=== PATIENT | female | born 2005 | race Caucasian/White ===

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

== ENCOUNTER 2024-04-07 13:23 | Emergency (ER) | payer OTHER ==
[2024-04-07 13:40] VITALS: RESP 18
[2024-04-07] MEDS: dexAMETHasone 4 MG TAB PO STA (14:14)
[2024-04-07] MEDS: IBUPROFEN 400 MG TAB PO STA (14:14)
--- NOTE | 2024-04-07 14:24 | XR ---
EXAMINATION TYPE: XR chest 2V DATE OF EXAM: 04/07/2024 2:08 PM CLINICAL INDICATION: Female, 18 years old with history of cough; [facility] COMPARISON: Chest radiographs from 12/06/2014 TECHNIQUE: XR chest 2V Frontal view of the chest. FINDINGS: Lungs/Pleura: There is no evidence of pleural effusion, focal consolidation, or pneumothorax. Pulmonary vascularity: Unremarkable. Heart/mediastinum: Cardiomediastinal silhouette is unremarkable. Musculoskeletal: No acute osseous pathology. Other findings: None IMPRESSION: No acute cardiopulmonary disease/process. [facility], Workstation [id number], 04/07/2024 2:21 PM
--- NOTE | 2024-04-07 14:35 | ED ---
General Adult HPI - General Chief complaint: Upper Respiratory Infection Stated complaint: COVID Time Seen by Provider: 04/07/24 13:45 Source: patient, RN notes reviewed, old records reviewed Mode of arrival: ambulatory Limitations: no limitations - History of Present Illness Initial comments: Patient is a 18-year-old female who presents emergency department complaining of cough, congestion. Has been ongoing for 3 days. No fevers. Took a home COVID test which was positive. Has a history of bilateral pneumonia and presents over concern for this as she is having productive cough of greenish sputum. Denies any chest pain, abdominal pain, nausea, vomiting, diarrhea. Denies any fevers. Presents for further evaluation at this time. - Related Data Home Medications Medication Instructions Recorded Confirmed FLUoxetine HCL [PROzac] 20 mg PO DAILY 08/18/18 09/23/18 Loratadine [Claritin] 10 mg PO DAILY 08/18/18 09/23/18 cloNIDine HCL [Catapres] 0.1 mg PO HS 08/18/18 09/23/18 Previous Rx's Medication Instructions Recorded Albuterol Inhaler [Ventolin Hfa 2 puff INHALATION TID PRN #8 gm 04/07/24 Inhaler] Nirmatrelvir/Ritonavir [Paxlovid 1 each PO DIRECTED #1 each 04/07/24 300-100 mg Dose Pack] Allergies Allergy/AdvReac Type Severity Reaction Status Date / Time No Known Allergies Allergy Verified 09/23/18 17:12 Review of Systems ROS Statement: Those systems with pertinent positive or pertinent negative responses have been documented in the HPI. Review of Systems: CONST: Denies fever EYES: Denies blurry vision ENT: Endorses nasal congestion C/V: Denies Chest pain RESP: Denies shortness of breath GI: Denies abdominal pain : Denies dysuria SKIN: Denies rash. MSK: Denies joint pain. NEURO: Denies headache ROS Other: All systems not noted in ROS Statement are negative. Past Medical History Past Medical History: GERD/Reflux, Liver Disease Additional Past Medical History / Comment(s): blind and deaf left side only History of Any Multi-Drug Resistant Organisms: None Reported Past Surgical History: Ear Surgery Additional Past Surgical History / Comment(s): EAR TUBES Past Psychological History: No Psychological Hx Reported Past Alcohol Use History: None Reported Past Drug Use History: None Reported General Exam - General Exam Comments Initial Comments: General: Appears in no acute distress. HEAD: Normal with no signs of head trauma. EYES: EOMI ENT: Hearing grossly intact, normal oropharynx. RESPIRATORY: Clear breath sounds bilaterally. No wheezes, rales, or rhonchi. No hypoxia. No increased work of breathing. C/V: Regular rate and rhythm. S1 and S2 auscultated, peripheral pulses 2+ and intact throughout ABD: Abd is soft, nontender, nondistended EXT: No obvious deformity SKIN: No rashes or lesions observed on exposed skin. NEURO: Alert and oriented x 4. Limitations: no limitations Course Vital Signs 04/07/24 04/07/24 13:33 13:39 Temperature 99.3 F Pulse Rate 106 H Respiratory 20 18 Rate Blood Pressure 161/93 O2 Sat by Pulse 99 Oximetry Medical Decision Making - Medical Decision Making Was pt. sent in by a medical professional or institution (, PA, [employer]ER, urgent care, hospital, or group home...) When possible be specific @ -No Did you speak to anyone other than the patient for history (EMS, parent, family, police, friend...)? What history was obtained from this source @ -No Did you review nursing and triage notes (agree or disagree)? Why? @ -I reviewed and agree with nursing and triage notes Were old charts reviewed (outside hosp., previous admission, EMS record, old EKG, old radiological studies, urgent care reports/EKG's, group home records)? Report findings @ -No old charts were reviewed Differential Diagnosis (chest pain, altered mental status, abdominal pain women, abdominal pain men, vaginal bleeding, weakness, fever, dyspnea, syncope, headache, dizziness, GI bleed, back pain, seizure, CVA, palpatations, mental health, musculoskeletal)? @ -Pneumonia, COVID-19 infection, viral syndrome. This list is not all inclusive. EKG interpreted by me (3pts min.). @ -None done X-rays interpreted by me (1pt min.). @ -Chest x-ray reveals no obvious acute cardiopulmonary process or infiltrate. CT interpreted by me (1pt min.). @ -None done U/S interpreted by me (1pt. min.). @ -None done What testing was considered but not performed or refused? (CT, X-rays, U/S, labs)? Why? @ -None What meds were considered but not given or refused? Why? @ -None Did you discuss the management of the patient with other professionals (professionals i.e. , MANDY, P[employer] SHOVELER, lab, RT, psych nurse, high school social studies teacher, vice president of software development, teacher, commissioned security officer, case packer)? Give summary @ -No Was smoking cessation discussed for >3mins.? @ -No Was critical care preformed (if so, how long)? @ -No Were there social determinants of health that impacted care today? How? (Homelessness, low income, unemployed, alcoholism, drug addiction, transportation, low edu. Level, literacy, decrease access to med. care, half-way, rehab)? @ -No Was there de-escalation of care discussed even if they declined (Discuss DNR or withdrawal of care, Hospice)? DNR status @ -No What co-morbidities impacted this encounter? (DM, HTN, Smoking, COPD, CAD, Cancer, CVA, ARF, Chemo, Hep., AIDS, mental health diagnosis, sleep apnea, morbid obesity)? @ -None Was patient admitted / discharged? Hospital course, mention meds given and route, prescriptions, significant lab abnormalities, going to OR and other pertinent info. @ -Based on the patient's presentation and physical exam, patient presents emergency department for COVID-19 infection but wants to be evaluated for possible pneumonia. She will be given a dose of Motrin as well as Decadron. We will obtain a chest x-ray. Viral swabs are not warranted at this time as home COVID test was positive. She is in no obvious respiratory distress. No fevers. Vitals within acceptable limits. Patient was in agreement this plan. Chest x-ray negative for any signs of acute infiltrate. I discussed results with patient. She will be discharged home with a prescription for Paxil bid as well as albuterol inhaler. Patient was in agreement this plan. Patient given work note. Instructed her to remain isolated and off work for at least 5 days after symptom onset which will be until next Tuesday. She is given a work note. Patient needs to be fever free for 24 hours prior to return to work. She expressed understanding was in agreement the plan. I will provide the patient with a prescription for Paxlovid, albuterol inhaler. I instructed the patient to follow up with their PCP in the next 1-3 days.. I explained that the patient should return to the emergency department if they exp erience any worsening symptoms. Strict return precautions were discussed with the patient. The patient expressed understanding of these instructions. I answered all questions that the patient had. The patient was discharged home in good condition with their prescriptions and follow up information. Undiagnosed new problem with uncertain prognosis? @ -No Drug Therapy requiring intensive monitoring for toxicity (Heparin, Nitro, Insulin, Cardizem)? @ -No Were any procedures done? @ -No Diagnosis/symptom? @ -COVID-19 infection Acute, or Chronic, or Acute on Chronic? @ -Acute Uncomplicated (without systemic symptoms) or Complicated (systemic symptoms)? @ -Complicated Side effects of treatment? @ -No Exacerbation, Progression, or Severe Exacerbation? @ -No Poses a threat to life or bodily function? How? (Chest pain, [place], [place], pneumonia, PE, COPD, DKA, ARF, appy, cholecystitis, CVA, Diverticulitis, Homicidal, Suicidal, threat to staff... and all critical care pts) @ -Unlikely Disposition Clinical Impression: COVID-19 virus infection Disposition: HOME SELF-CARE Condition: Good Instructions (If sedation given, give patient instructions): Coronavirus Disease 2019 (COVID-19) Prescriptions: Nirmatrelvir/Ritonavir [Paxlovid 300-100 mg Dose Pack] 1 each PO DIRECTED #1 each Albuterol Inhaler [Ventolin Hfa Inhaler] 2 puff INHALATION TID PRN #8 gm PRN Reason: Dyspnea Is patient prescribed a controlled substance at d/c from ED?: No Referrals: Yusef Cruz DO [Primary Care Provider] - 1-2 days Time of Disposition: 14:35
[2024-04-07 14:55] VITALS: BP 156/90; PULSE 96; TEMP 98
== END 2024-04-07 14:54 | disposition home or self-care (01) ==
LOC: EC 13:23
DX: U07.1 COVID-19 (principal)
CPT/HCPCS: 71046; 99283

== ENCOUNTER 2024-05-16 00:50 | Emergency (ER) | payer OTHER ==
[2024-05-16] MEDS: IPRATROPIUM-ALBUTEROL 3 ML NEB INHALATION STA (01:23)
[2024-05-16] MEDS: ACETAMINOPHEN TAB 500 MG TAB PO STA (01:36)
[2024-05-16] MEDS: SODIUM CHLORIDE 0.9% 1,000 ML IV STA (01:38)
[2024-05-16 01:59] LABS: ALT 44 U/L (4-34); AST 27 U/L (14-36); African American GFR (CKD) >90 (>60 ml/min/1.73 sqM); Albumin 4.1 g/dL (3.5-5.0); Alkaline Phosphatase 54 U/L (38-126); Anion Gap 8 mmol/L; Blood Urea Nitrogen 11 mg/dL (7-17); Calcium 9.2 mg/dL (8.4-10.2); Carbon Dioxide 21 mmol/L (22-30); Chloride 105 mmol/L (98-107); Glucose 84 mg/dL (74-99); Magnesium 1.8 mg/dL (1.6-2.3); Non-African American GFR(CKD) >90 (>60 ml/min/1.73 sqM); Potassium 4.1 mmol/L (3.5-5.1); Sodium 134 mmol/L (137-145); Total Bilirubin 0.4 mg/dL (0.2-1.3); Total Protein 6.7 g/dL (6.3-8.2)
[2024-05-16 02:02] LABS: Basophils # (A) 0.1 k/uL (0-0.2); Basophils % (A) 0 %; Eosinophils # (A) 0.1 k/uL (0-0.7); Eosinophils % (A) 1 %; HCT 42.3 % (34.0-46.0); HGB 14.2 gm/dL (11.4-16.0); Lymphocytes # (A) 2.4 k/uL (1.0-4.8); Lymphocytes % (A) 18 %; MCH 31.1 pg (25.0-35.0); MCHC 33.6 g/dL (31.0-37.0); MCV 92.5 fL (80.0-100.0); Mean Platelet Volume 8.5; Monocytes % (A) 7 %; Neutrophils # (A) 9.5 k/uL (1.3-7.7); Neutrophils % (A) 72 %; Platelet Count 306 k/uL (150-450); RBC 4.57 m/uL (3.80-5.40); RDW 12.5 % (11.5-15.5); WBC 13.3 k/uL (4.0-11.0)
--- NOTE | 2024-05-16 02:07 | ED ---
General Adult HPI - General Source: patient, RN notes reviewed, old records reviewed Mode of arrival: ambulatory <Galindo Mckeon - Last Filed: 05/16/24 06:22> <Ramu Powell - Last Filed: 05/16/24 07:57> - General Chief complaint: Upper Respiratory Infection Stated complaint: SOB- 6 wks preg Time Seen by Provider: 05/16/24 01:02 - History of Present Illness Initial comments: Is a 18-year-old female presents emergency department complaining of URI symptoms. Patient is also complaining of chest heaviness. Had COVID 2 weeks ago. States that she was feeling improved however today began developing a dry cough with a chest pressure/discomfort that is substernal. 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 Denies sore throat. Denies fevers. Denies nausea, vomiting, abdominal pain. No cardiac history. Presents for further evaluation at this time. States she feels congested, with ear plugging sensation as well. Patient is 6 weeks . Denies any vaginal discharge or bleeding. (Galindo Mckeon) - Related Data Home Medications Medication Instructions Recorded Confirmed FLUoxetine HCL [PROzac] 20 mg PO DAILY 08/18/18 09/23/18 Loratadine [Claritin] 10 mg PO DAILY 08/18/18 09/23/18 cloNIDine HCL [Catapres] 0.1 mg PO HS 08/18/18 09/23/18 Previous Rx's Medication Instructions Recorded Albuterol Inhaler [Ventolin Hfa 2 puff INHALATION TID PRN #8 gm 04/07/24 Inhaler] Nirmatrelvir/Ritonavir [Paxlovid 1 each PO DIRECTED #1 each 04/07/24 300-100 mg Dose Pack] Amoxic-Pot Clav 875-125Mg 1 tab PO Q12HR 7 Days #14 tab 05/16/24 [Augmentin 875-125] Allergies Allergy/AdvReac Type Severity Reaction Status Date / Time No Known Allergies Allergy Verified 05/16/24 00:58 Review of Systems ROS Other: All systems not noted in ROS Statement are negative. <Galindo Mckeon - Last Filed: 05/16/24 06:22> ROS Other: All systems not noted in ROS Statement are negative. <Ramu Powell - Last Filed: 05/16/24 07:57> ROS Statement: Those systems with pertinent positive or pertinent negative responses have been documented in the HPI. Review of Systems: CONST: Denies fever EYES: Denies blurry vision ENT: Endorses nasal congestion C/V: Endorses chest discomfort RESP: Endorses cough GI: Denies abdominal pain : Denies dysuria SKIN: Denies rash. MSK: Denies joint pain. 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 HEAD: Normal with no signs of head trauma. EYES: PERRLA, EOMI, conjunctiva normal, no discharge. ENT: Hearing grossly intact, normal oropharynx. RESPIRATORY: Clear breath sounds bilaterally. No wheezes, rales, or rhonchi. C/V: Regular rate and rhythm. S1 and S2 auscultated, no edema, peripheral pulses 2+ and intact throughout ABD: Abd is soft, nontender, nondistended EXT: Normal range of motion, no obvious deformity SKIN: No rashes or lesions observed on exposed skin. NEURO: And oriented x 4. (Galindo Mckeon) Course Vital Signs 05/16/24 05/16/24 05/16/24 00:52 01:25 01:33 Temperature 98.7 F Pulse Rate 115 H 75 78 Respiratory 20 Rate Blood Pressure 137/84 O2 Sat by Pulse 99 Oximetry 05/16/24 05/16/24 05/16/24 03:27 06:11 07:36 Temperature 98.3 F 98.5 F 98.1 F Pulse Rate 99 95 92 Respiratory 18 18 16 Rate Blood Pressure 146/96 139/74 129/85 O2 Sat by Pulse 98 98 97 Oximetry Medical Decision Making - Lab Data Result diagrams: 05/16/24 01:35 05/16/24 01:35 - EKG Data -: EKG Interpreted by Me <MikeGalindo - Last Filed: 05/16/24 06:22> - Lab Data Result diagrams: 05/16/24 01:35 05/16/24 01:35 <NahumcathyRamu Nayely - Last Filed: 05/16/24 07:57> - Medical Decision Making Was pt. sent in by a medical professional or institution (, [facility], [employer], urgent care, hospital, or shelter...) When possible be specific @ -No Did you speak to anyone other than the patient for history (EMS, parent, family, police, friend...)? What history was obtained from this source @ -No Did you review nursing and triage notes (agree or disagree)? Why? @ -I reviewed and agree with nursing and triage notes Were old charts reviewed (outside hosp., previous admission, EMS record, old EKG, old radiological studies, urgent care reports/EKG's, shelter records)? Report findings @ -No old charts were reviewed Differential Diagnosis (chest pain, altered mental status, abdominal pain women, abdominal pain men, vaginal bleeding, weakness, fever, dyspnea, syncope, headache, dizziness, GI bleed, back pain, seizure, CVA, palpatations, mental health, musculoskeletal)? @ -ACS, COVID, flu, RSV, pneumonia, this list is not all inclusive. EKG interpreted by me (3pts min.). @ -As above X-rays interpreted by me (1pt min.). @ -X-ray shows findings concerning for pneumonia in the left middle lobe based on my interpretation and comparison with prior x-rays. CT interpreted by me (1pt min.). @ -None done U/S interpreted by me (1pt. min.). @ -None done What testing was considered but not performed or refused? (CT, X-rays, U/S, labs)? Why? @ -None What meds were considered but not given or refused? Why? @ -None Did you discuss the management of the patient with other professionals (professionals i.e. , PA, [employer], lab, RT, psych nurse, home health care social worker, rotational moulding operator, teacher, traffic police officer, director of casework)? Give summary @ -No Was smoking cessation discussed for >3mins.? @ -No Was critical care preformed (if so, how long)? @ -No Were there social determinants of health that impacted care today? How? (Homelessness, low income, unemployed, alcoholism, drug addiction, transportation, low edu. Level, literacy, decrease access to med. care, residential, rehab)? @ -No Was there de-escalation of care discussed even if they declined (Discuss DNR or withdrawal of care, Hospice)? DNR status @ -No What co-morbidities impacted this encounter? (DM, HTN, Smoking, COPD, CAD, Cancer, CVA, ARF, Chemo, Hep., AIDS, mental health diagnosis, sleep apnea, morbid obesity)? @ - Was patient admitted / discharged? Hospital course, mention meds given and route, prescriptions, significant lab abnormalities, going to OR and other pertinent info. @ -Patient presents with URI symptoms as well as chest discomfort. We will obtain cardiac workup in addition to evaluation of the URI symptoms. She was in agreement this plan. She was given IV fluids, DuoNeb breathing treatment, Tylenol. Patient is currently but has no complaints regarding this. Discussed the risks of providing chest x-ray and she did accept them. Vitals are within acceptable limits at this time. EKG shows no signs of acute ischemia.Chest x-ray concerning for infiltrate in the left middle lobe. Laboratory studies remarkable for leukocytosis of 13. Troponin undetectable. When patient was going to leave a urine sample, she began having episodes of vaginal spotting. No large tissue or clots appreciated. Patient is 6 weeks , G1, P0. Has not yet had any follow- up. Quantitative beta-hCG was added on at this time. Urinalysis remarkable for blood. Quantitative beta-hCG is 63,000. Attempted bedside ultrasound indeterminant due to bowel gas as well as poor resolution. Discussed with the patient. She is feeling overall improved in terms of her breathing and chest tightness. States the breathing treatment helped. I discussed with her that I suspect she has pneumonia based on chest x-ray. She will be started on antibiotics, IV Rocephin as well as given a prescription for oral Augmentin. I discussed the indeterminant bedside ultrasound findings and recommended formal radiology ultrasound. Patient was in agreement this plan. It is the middle of the night and she was in agreement with waiting until 7 AM for this ultrasound. Patient will be discharged home afterwards.Patient is Rh+ and does not require RhoGAM. I discussed the patient with the oncoming emergency department physician, Dr. Powell. Disposition pending ultrasound. Undiagnosed new problem with uncertain prognosis? @ -No Drug Therapy requiring intensive monitoring for toxicity (Heparin, Nitro, Insulin, Cardizem)? @ -No Were any procedures done? @ -No Diagnosis/symptom? @ -Pneumonia, threatened miscarriage Acute, or Chronic, or Acute on Chronic? @ -Acute Uncomplicated (without systemic symptoms) or Complicated (systemic symptoms)? @ -Complicated Side effects of treatment? @ -None Exacerbation, Progression, or Severe Exacerbation] @ -No Poses a threat to life or bodily function? @ -Unlikely at this time (Galindo Mckeon) Patient care signed out to me by previous shift physician, Dr. Mckeon. Briefly, patient is 18-year-old female presents to the emergency department for respiratory infectious type symptoms. During her ER stay she started to have some vaginal bleeding. Plan at signout was to follow-up with pending ultrasound study. She is allegedly 6-week . Laboratory evaluation obtained. Beta quant is 62,258. Ultrasound shows no complications of the . There is appear to be a single viable intrauterine with viable heart rate. Patient reevaluated bedside at 7:55 AM found to be stable to condition. Patient discharged. (Ramu Powell) - Lab Data Lab Results 05/16/24 05/16/24 05/16/24 Range/Units 01:35 01:35 01:35 WBC 13.3 H (4.0-11.0) k/uL RBC 4.57 (3.80-5.40) m/uL Hgb 14.2 (11.4-16.0) gm/dL Hct 42.3 (34.0-46.0) % MCV 92.5 (80.0-100.0) fL MCH 31.1 (25.0-35.0) pg MCHC 33.6 (31.0-37.0) g/dL RDW 12.5 (11.5-15.5) % Plt Count 306 (150-450) k/uL MPV 8.5 Neutrophils % 72 % Lymphocytes % 18 % Monocytes % 7 % Eosinophils % 1 % Basophils % 0 % Neutrophils # 9.5 H (1.3-7.7) k/uL Lymphocytes # 2.4 (1.0-4.8) k/uL Monocytes # 1.0 (0-1.0) k/uL Eosinophils # 0.1 (0-0.7) k/uL Basophils # 0.1 (0-0.2) k/uL PT 10.0 (10.0-12.5) sec INR 0.9 (<1.2) APTT 30.7 H (22.0-30.0) sec Sodium 134 L (137-145) mmol/L Potassium 4.1 (3.5-5.1) mmol/L Chloride 105 (98-107) mmol/L Carbon Dioxide 21 L (22-30) mmol/L Anion Gap 8 mmol/L BUN 11 (7-17) mg/dL Creatinine 0.56 (0.52-1.04) mg/dL Est GFR (CKD-EPI)AfAm >90 (>60 ml/min/1.73 sqM) Est GFR (CKD-EPI)NonAf >90 (>60 ml/min/1.73 sqM) Glucose 84 (74-99) mg/dL Calcium 9.2 (8.4-10.2) mg/dL Magnesium 1.8 (1.6-2.3) mg/dL Total Bilirubin 0.4 (0.2-1.3) mg/dL AST 27 (14-36) U/L ALT 44 H (4-34) U/L Alkaline Phosphatase 54 (38-126) U/L Troponin I (0.000-0.034) ng/mL Total Protein 6.7 (6.3-8.2) g/dL Albumin 4.1 (3.5-5.0) g/dL HCG, Quant mIU/mL Urine Color Urine Appearance (Clear) Urine pH (5.0-8.0) Ur Specific [place] (1.001-1.035) Urine Protein (Negative) Urine Glucose (UA) (Negative) Urine Ketones (Negative) Urine Blood (Negative) Urine Nitrite (Negative) Urine Bilirubin (Negative) Urine Urobilinogen (<2.0) mg/dL Ur Leukocyte Esterase (Negative) Urine RBC (0-5) /hpf Urine WBC (0-5) /hpf Ur Squamous Epith Cells (0-4) /hpf Amorphous Sediment (None) /hpf Urine Mucus (None) /hpf Influenza Type A (PCR) (Not Detectd) Influenza Type B (PCR) (Not Detectd) RSV (PCR) (Not Detectd) SARS-CoV-2 (PCR) (Not Detectd) Blood Type Blood Type Confirm Blood Type Recheck Bld Type Recheck Status Antibody Screen Spec Expiration Date 05/16/24 05/16/24 05/16/24 Range/Units 01:35 01:35 01:35 WBC (4.0-11.0) k/uL RBC (3.80-5.40) m/uL Hgb (11.4-16.0) gm/dL Hct (34.0-46.0) % MCV (80.0-100.0) fL MCH (25.0-35.0) pg MCHC (31.0-37.0) g/dL RDW (11.5-15.5) % Plt Count (150-450) k/uL MPV Neutrophils % % Lymphocytes % % Monocytes % % Eosinophils % % Basophils % % Neutrophils # (1.3-7.7) k/uL Lymphocytes # (1.0-4.8) k/uL Monocytes # (0-1.0) k/uL Eosinophils # (0-0.7) k/uL Basophils # (0-0.2) k/uL PT (10.0-12.5) sec INR (<1.2) APTT (22.0-30.0) sec Sodium (137-145) mmol/L Potassium (3.5-5.1) mmol/L Chloride (98-107) mmol/L Carbon Dioxide (22-30) mmol/L Anion Gap mmol/L BUN (7-17) mg/dL Creatinine (0.52-1.04) mg/dL Est GFR (CKD-EPI)AfAm (>60 ml/min/1.73 sqM) Est GFR (CKD-EPI)NonAf (>60 ml/min/1.73 sqM) Glucose (74-99) mg/dL Calcium (8.4-10.2) mg/dL Magnesium (1.6-2.3) mg/dL Total Bilirubin (0.2-1.3) mg/dL AST (14-36) U/L ALT (4-34) U/L Alkaline Phosphatase (38-126) U/L Troponin I <0.012 (0.000-0.034) ng/mL Total Protein (6.3-8.2) g/dL Albumin (3.5-5.0) g/dL HCG, Quant 54430.3 mIU/mL Urine Color Urine Appearance (Clear) Urine pH (5.0-8.0) Ur Specific [place] (1.001-1.035) Urine Protein (Negative) Urine Glucose (UA) (Negative) Urine Ketones (Negative) Urine Blood (Negative) Urine Nitrite (Negative) Urine Bilirubin (Negative) Urine Urobilinogen (<2.0) mg/dL Ur Leukocyte Esterase (Negative) Urine RBC (0-5) /hpf Urine WBC (0-5) /hpf Ur Squamous Epith Cells (0-4) /hpf Amorphous Sediment (None) /hpf Urine Mucus (None) /hpf Influenza Type A (PCR) (Not Detectd) Influenza Type B (PCR) (Not Detectd) RSV (PCR) (Not Detectd) SARS-CoV-2 (PCR) (Not Detectd) Blood Type Blood Type Confirm A Positive Blood Type Recheck Bld Type Recheck Status Antibody Screen Spec Expiration Date 05/16/24 05/16/24 05/16/24 Range/Units 01:48 02:41 03:20 WBC (4.0-11.0) k/uL RBC (3.80-5.40) m/uL Hgb (11.4-16.0) gm/dL Hct (34.0-46.0) % MCV (80.0-100.0) fL MCH (25.0-35.0) pg MCHC (31.0-37.0) g/dL RDW (11.5-15.5) % Plt Count (150-450) k/uL MPV Neutrophils % % Lymphocytes % % Monocytes % % Eosinophils % % Basophils % % Neutrophils # (1.3-7.7) k/uL Lymphocytes # (1.0-4.8) k/uL Monocytes # (0-1.0) k/uL Eosinophils # (0-0.7) k/uL Basophils # (0-0.2) k/uL PT (10.0-12.5) sec INR (<1.2) APTT (22.0-30.0) sec Sodium (137-145) mmol/L Potassium (3.5-5.1) mmol/L Chloride (98-107) mmol/L Carbon Dioxide (22-30) mmol/L Anion Gap mmol/L BUN (7-17) mg/dL Creatinine (0.52-1.04) mg/dL Est GFR (CKD-EPI)AfAm (>60 ml/min/1.73 sqM) Est GFR (CKD-EPI)NonAf (>60 ml/min/1.73 sqM) Glucose (74-99) mg/dL Calcium (8.4-10.2) mg/dL Magnesium (1.6-2.3) mg/dL Total Bilirubin (0.2-1.3) mg/dL AST (14-36) U/L ALT (4-34) U/L Alkaline Phosphatase (38-126) U/L Troponin I (0.000-0.034) ng/mL Total Protein (6.3-8.2) g/dL Albumin (3.5-5.0) g/dL HCG, Quant mIU/mL Urine Color Light Yellow Urine Appearance Cloudy H (Clear) Urine pH 7.0 (5.0-8.0) Ur Specific [place] 1.023 (1.001-1.035) Urine Protein Negative (Negative) Urine Glucose (UA) Negative (Negative) Urine Ketones Negative (Negative) Urine Blood Large H (Negative) Urine Nitrite Negative (Negative) Urine Bilirubin Negative (Negative) Urine Urobilinogen <2.0 (<2.0) mg/dL Ur Leukocyte Esterase Negative (Negative) Urine RBC <1 (0-5) /hpf Urine WBC <1 (0-5) /hpf Ur Squamous Epith Cells 5 H (0-4) /hpf Amorphous Sediment Rare H (None) /hpf Urine Mucus Occasional H (None) /hpf Influenza Type A (PCR) Not Detected (Not Detectd) Influenza Type B (PCR) Not Detected (Not Detectd) RSV (PCR) Not Detected (Not Detectd) SARS-CoV-2 (PCR) Not Detected (Not Detectd) Blood Type A Positive Blood Type Confirm Blood Type Recheck No Previous Record Bld Type Recheck Status CABO Indicated Antibody Screen NEGATIVE Spec Expiration Date 05/19/20242319 - EKG Data EKG Comments: 12-lead Electrocardiogram Interpretation Note EKG was reviewed and interpreted by myself. 12-lead ECG performed at 0121 is interpreted by me as revealing tachycardia at a rate of 102 beats per minute. Goltry is normal. ND interval is 151 ms, QRS duration is 85 ms, QTc is 387 ms.. There were no ST or T wave abnormalities to suggest myocardial ischemia or injury. R wave progression across the precordium was satisfactory. By my interpretation this EKG is non-diagnostic for acute ischemia. (Galindo Mckeon) Disposition Is patient prescribed a controlled substance at d/c from ED?: No <Galindo Mckeon - Last Filed: 05/16/24 06:22> Is patient prescribed a controlled substance at d/c from ED?: No <Ramu Powell - Last Filed: 05/16/24 07:57> Clinical Impression: Threatened miscarriage, Pneumonia Disposition: HOME SELF-CARE Condition: Good Instructions (If sedation given, give patient instructions): Threatened Miscarriage (ED), Community Acquired Pneumonia (ED) Additional Instructions: Follow up with your OBGYN. Monitor bleeding, return if worsening symptoms. Prescriptions: Amoxic-Pot Clav 875-125Mg [Augmentin 875-125] 1 tab PO Q12HR 7 Days #14 tab Referrals: Yusef Cruz DO [Primary Care Provider] - 1-2 days
[2024-05-16 02:28] LABS: INR 0.9 (<1.2); Partial Thromboplastin Time 30.7 sec (22.0-30.0)
[2024-05-16 03:15] LABS: Amorphous Sediment,Urine Rare /hpf; Appearance,Urine Cloudy (Clear); Bilirubin,Urine Negative (Negative); Blood,Urine Large (Negative); Color,Urine Light Yellow; Glucose,Urine (UA) Negative (Negative); Ketones,Urine Negative (Negative); Leukocyte Esterase,Urine Negative (Negative); Mucus,Urine Occasional /hpf; Nitrite,Urine Negative (Negative); Protein,Urine Negative (Negative); RBC,Urine <1 /hpf (0-5); Specific Gravity,Urine 1.023 (1.001-1.035); Squamous Epithelial Cell,Urine 5 /hpf (0-4); Urobilinogen,Urine <2.0 mg/dL (<2.0); WBC,Urine <1 /hpf (0-5)
--- NOTE | 2024-05-16 03:22 | XR ---
EXAM: XR Chest, 2 Views CLINICAL HISTORY: ITS.REASON XR Reason: Chest Pain TECHNIQUE: Frontal and lateral views of the chest. COMPARISON: Chest radiograph on 04/07/2024 FINDINGS: Hardware: None. Lungs/pleura: Normal. No focal consolidation. No pleural effusion or pneumothorax. Heart/mediastinum: Normal. No cardiomegaly. Soft tissues: Unremarkable. Bones: No acute fracture. Upper abdomen: Normal. IMPRESSION: No acute disease identified.
[2024-05-16] MEDS: cefTRIAXone IN SWFI 1,000 MG/10 ML SYRINGE IVP STA (06:13)
[2024-05-16 07:37] VITALS: TEMP 98.1
--- NOTE | 2024-05-16 07:50 | US ---
EXAMINATION TYPE: Transabdominal DATE OF EXAM: 05/16/2024 7:20 AM COMPARISON: NONE CLINICAL INDICATION: Female, 18 years old with history of vaginal bleeding.; spotting TECHNIQUE: Transabdominal (TA) with grayscale and color Doppler imaging including first trimester pre gnancy. FINDINGS: EXAM MEASUREMENTS: GESTATIONAL AGE / DATING Physician Established: Not yet established Dates by LMP: (6 weeks/4 days) EDC: 01/05/25 Dates by First Scan: No previous this is first scan Dates by Current Scan for: (6 weeks/6 days) EDC: 01/03/25 MATERNAL ANATOMY Uterus: 11.0x4.7x6.7cm Right Ovary: 4.0x2.1x3.0cm Left Ovary: 2.9x1.4x1.7cm Post CDS / Adnexa: wnl Presence of free fluid: no Presence of corpus luteal cyst: no Presence of subchorionic bleed: no GESTATION / SURVEY CRL: 0.9 (6 weeks/6 days) Yolk Sac (normal less than 6mm): 1.8mm Heart Rate: 121 bpm Rhythm: Normal IUP: Viable IUP Date of LMP: 03/31/24 Beta HcG (if available): Not available at this time IMPRESSION: 1. Single viable intrauterine . [facility], , 05/16/2024 7:48 AM
[2024-05-16 08:13] VITALS: BP 132/70; PULSE 104; RESP 18
== END 2024-05-16 08:22 | disposition home or self-care (01) ==
LOC: EC 00:50
CPT/HCPCS: 36415; 71046; 76801; 80053; 81001; 83735; 84484; 84702; 85025; 85610; 85730; 86850; 86900; 86901; 87636; 93005; 94640; 96361; 96374; 96375; 99285

== ENCOUNTER 2024-05-19 12:35 | Observation (INO) | payer OTHER ==
--- NOTE | 2024-05-19 13:21 | ED ---
General Adult HPI - General Chief complaint: Upper Respiratory Infection Stated complaint: SOB Time Seen by Provider: 05/19/24 13:00 Source: patient Mode of arrival: ambulatory Limitations: no limitations - History of Present Illness Initial comments: Dictation was produced using [employer] dictation software. please excuse any grammatical, word or spelling errors. Chief Complaint: 18-year-old female with cold symptoms History of Present Illness: Patient is a 18-year-old female presents to the emergency department with cold symptoms. Patient was seen here in the emergency department 3 days ago for the same complaints. She was diagnosed with pneumonia given prescription for Augmentin. States that her symptoms have not been improving. She was diagnosed with COVID over a month ago. States that she has not really recovered. No chest pain. Some slight shortness of breath. She is allegedly 7 weeks . The ROS documented in this emergency department record has been reviewed and confirmed by me. Those systems with pertinent positive or negative responses have been documented in the HPI. All other systems are other negative and/or noncontributory. - Related Data Home Medications Medication Instructions Recorded Confirmed FLUoxetine HCL [PROzac] 20 mg PO DAILY 08/18/18 09/23/18 Loratadine [Claritin] 10 mg PO DAILY 08/18/18 09/23/18 cloNIDine HCL [Catapres] 0.1 mg PO HS 08/18/18 09/23/18 Previous Rx's Medication Instructions Recorded Albuterol Inhaler [Ventolin Hfa 2 puff INHALATION TID PRN #8 gm 04/07/24 Inhaler] Nirmatrelvir/Ritonavir [Paxlovid 1 each PO DIRECTED #1 each 04/07/24 300-100 mg Dose Pack] Amoxic-Pot Clav 875-125Mg 1 tab PO Q12HR 7 Days #14 tab 05/16/24 [Augmentin 875-125] Allergies Allergy/AdvReac Type Severity Reaction Status Date / Time No Known Allergies Allergy Verified 05/19/24 12:59 Review of Systems ROS Statement: Those systems with pertinent positive or pertinent negative responses have been documented in the HPI. ROS Other: All systems not noted in ROS Statement are negative. 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, liver issues, History of Any Multi-Drug Resistant Organisms: None Reported Past Surgical History: Ear Surgery Additional Past Surgical History / Comment(s): EAR TUBES, oral surgery 07/2021 Past Psychological History: Anxiety, Depression Smoking Status: Former smoker Past Alcohol Use History: None Reported Past Drug Use History: None Reported General Exam - General Exam Comments Initial Comments: PHYSICAL EXAM: General Impression: Alert and oriented x3, not in acute distress HEENT: Normocephalic atraumatic, extra-ocular movements intact, pupils equal and reactive to light bilaterally, mucous membranes moist. Cardiovascular: Heart regular rate and rhythm Chest: Able to complete full sentences, no retractions, no tachypnea Abdomen: abdomen soft, non-tender, non-distended, no organomegaly Musculoskeletal: Pulses present and equal in all extremities, no peripheral edema Motor: no focal deficits noted Neurological: CN II-XII grossly intact, no focal motor or sensory deficits noted Skin: Intact with no visualized rashes Psych: Normal affect and mood Limitations: no limitations Course Vital Signs 05/19/24 12:53 Temperature 99.0 F Pulse Rate 87 Respiratory 18 Rate Blood Pressure 121/69 O2 Sat by Pulse 98 Oximetry Medical Decision Making - Medical Decision Making Was pt. sent in by a medical professional or institution (, PA, B[employer]K SAUSAGE [employer]ING TIER [employer], urgent care, hospital, or correction...) When possible be specific @ -No Did you speak to anyone other than the patient for history (EMS, parent, family, police, friend...)? What history was obtained from this source @ -No Did you review nursing and triage notes (agree or disagree)? Why? @ -I reviewed and agree with nursing and triage notes Were old charts reviewed (outside hosp., previous admission, EMS record, old EKG, old radiological studies, urgent care reports/EKG's, correction records)? Report findings @ -No old charts were reviewed Differential Diagnosis (chest pain, altered mental status, abdominal pain women, abdominal pain men, vaginal bleeding, musculoskeletal, weakness, fever, dyspnea, syncope, headache, dizziness, GI bleed, back pain, seizure, CVA, palpatations, mental health)? @ -Pneumonia, viral URI, influenza EKG interpreted by me (3pts min.). @ -None done X-rays interpreted by me (1pt min.). @ -Chest x-ray shows progression of pneumonia CT interpreted by me (1pt min.). @ -None done U/S interpreted by me (1pt. min.). @ -None done What testing was considered but not performed or refused? (CT, X-rays, U/S, labs)? Why? @ -None What meds were considered but not given or refused? Why? @ -None Was smoking cessation discussed for >3mins.? @ -No Were there social determinants of health that impacted care today? How? (Jhon elessness, low income, unemployed, alcoholism, drug addiction, transportation, low edu. Level, literacy, decrease access to med. care, care home, rehab)? @ -No Was there de-escalation of care discussed even if they declined (Discuss DNR or withdrawal of care, Hospice)? DNR status @ -No What co-morbidities impacted this encounter? (DM, HTN, Smoking, COPD, CAD, Cancer, CVA, ARF, Chemo, Hep., AIDS, mental health diagnosis, sleep apnea, morbid obesity)? @ -None Was patient admitted / discharged? Hospital course, mention meds given and route, prescriptions, significant lab abnormalities, going to OR and other pertinent info. @ -18-year-old female presents with persistent URI type symptoms. Vital signs stable. Patient well-appearing at the bedside. X-ray shows progression of pulmonary infiltrates. Laboratory evaluation is unremarkable.Physician options were discussed with patient she is agreeable for observation admission with pulmonary consultation. Patient started on IV antibiotics for commune acquired pneumonia. Did you discuss the management of the patient with other professionals (professionals i.e. , PA, [employer]ER [employer], lab, RT, psych nurse, forensic social worker, commissioner conservation of resources, teacher, svp chief marketing officer, director of casework services)? Give summary @ -Case discussed with hospitalist for admission Was critical care preformed (if so, how long)? @ -No Undiagnosed new problem with uncertain prognosis? @ -No Drug Therapy requiring intensive monitoring for toxicity (Heparin, Nitro, Insulin, Cardizem)? @ -No Were any procedures done? @ -No Diagnosis/symptom? Acute, or Chronic, or Acute on Chronic? Uncomplicated (without systemic symptoms) or Complicated (systemic symptoms)? @ -Pneumonia complicated by Side effects of treatment? @ -No Exacerbation, Progression, or Severe Exacerbation? @ -No Poses a threat to life or bodily function? How? (Chest pain, [place], [place], pneumonia, PE, COPD, DKA, ARF, appy, cholecystitis, CVA, Diverticulitis, Homicidal, Suicidal, threat to staff... and all critical care pts) @ -yes - Lab Data Result diagrams: 05/19/24 13:22 05/19/24 13:22 Lab Results 05/19/24 05/19/24 Range/Units 13:22 13:22 WBC 9.9 (4.0-11.0) k/uL RBC 4.61 (3.80-5.40) m/uL Hgb 14.1 (11.4-16.0) gm/dL Hct 41.2 (34.0-46.0) % MCV 89.2 (80.0-100.0) fL MCH 30.5 (25.0-35.0) pg MCHC 34.1 (31.0-37.0) g/dL RDW 12.4 (11.5-15.5) % Plt Count 291 (150-450) k/uL MPV 8.2 Neutrophils % 69 % Lymphocytes % 18 % Monocytes % 7 % Eosinophils % 3 % Basophils % 0 % Neutrophils # 6.9 (1.3-7.7) k/uL Lymphocytes # 1.8 (1.0-4.8) k/uL Monocytes # 0.7 (0-1.0) k/uL Eosinophils # 0.3 (0-0.7) k/uL Basophils # 0.0 (0-0.2) k/uL Sodium 135 L (137-145) mmol/L Potassium 4.2 (3.5-5.1) mmol/L Chloride 108 H (98-107) mmol/L Carbon Dioxide 20 L (22-30) mmol/L Anion Gap 7 mmol/L BUN 7 (7-17) mg/dL Creatinine 0.53 (0.52-1.04) mg/dL Est GFR (CKD-EPI)AfAm >90 (>60 ml/min/1.73 sqM) Est GFR (CKD-EPI)NonAf >90 (>60 ml/min/1.73 sqM) Glucose 96 (74-99) mg/dL Calcium 8.7 (8.4-10.2) mg/dL Disposition Clinical Impression: Pneumonia Disposition: ADMITTED IP TO THIS HOSP Condition: Fair Referrals: Yusef Cruz DO [Primary Care Provider] - 1-2 days Decision Time: 14:21
[2024-05-19] MEDS: ACETAMINOPHEN TAB 500 MG TAB PO STA (13:25)
[2024-05-19] MEDS: SODIUM CHLORIDE 0.9% 1,000 ML IV STA (13:25)
[2024-05-19 13:31] LABS: Basophils % (A) 0 %; Eosinophils # (A) 0.3 k/uL (0-0.7); Eosinophils % (A) 3 %; HCT 41.2 % (34.0-46.0); HGB 14.1 gm/dL (11.4-16.0); Lymphocytes # (A) 1.8 k/uL (1.0-4.8); Lymphocytes % (A) 18 %; MCH 30.5 pg (25.0-35.0); MCHC 34.1 g/dL (31.0-37.0); MCV 89.2 fL (80.0-100.0); Mean Platelet Volume 8.2; Monocytes # (A) 0.7 k/uL (0-1.0); Monocytes % (A) 7 %; Neutrophils # (A) 6.9 k/uL (1.3-7.7); Neutrophils % (A) 69 %; Platelet Count 291 k/uL (150-450); RBC 4.61 m/uL (3.80-5.40); RDW 12.4 % (11.5-15.5); WBC 9.9 k/uL (4.0-11.0)
[2024-05-19 13:39] LABS: African American GFR (CKD) >90 (>60 ml/min/1.73 sqM); Anion Gap 7 mmol/L; Blood Urea Nitrogen 7 mg/dL (7-17); Calcium 8.7 mg/dL (8.4-10.2); Carbon Dioxide 20 mmol/L (22-30); Chloride 108 mmol/L (98-107); Glucose 96 mg/dL (74-99); Non-African American GFR(CKD) >90 (>60 ml/min/1.73 sqM); Sodium 135 mmol/L (137-145)
[2024-05-19 13:44] LABS: Potassium 4.2 mmol/L (3.5-5.1)
--- NOTE | 2024-05-19 13:56 | XR ---
EXAMINATION TYPE: XR chest 2V DATE OF EXAM: 05/19/2024 1:48 PM CLINICAL INDICATION: Female, 18 years old with history of cough; [facility] COMPARISON: Chest radiographs from 05/16/2024. TECHNIQUE: XR chest 2V Frontal and lateral views of the chest. FINDINGS: Lungs/Pleura: Left upper lung perihilar airspace opacities. There is no evidence of pleural effusion, right focal consolidation, or pneumothorax. Pulmonary vascularity: Unremarkable. Heart/mediastinum: Cardiomediastinal silhouette is unremarkable. Musculoskeletal: No acute osseous pathology. Other findings: None Lines/Tubes: IMPRESSION: Left upper lung airspace opacities compatible with pneumonia. Findings have worsened from prior. [facility], , 05/19/2024 1:54 PM
[2024-05-19] MEDS ORDERED: NALOXONE 0.4 MG/ML 1 ML VIAL IV PRN (14:17)
[2024-05-19] MEDS ORDERED: ACETAMINOPHEN TAB 325 MG TAB PO PRN (14:17)
[2024-05-19] MEDS: SODIUM CHLORIDE 0.9% 1,000 ML IV SCH (15:00)
[2024-05-19] MEDS: AMPICILLIN-SULBACTAM 3 GM in SODIUM CHLORIDE 0.9% 100 ML IVPB SCH (15:02)
[2024-05-19] MEDS: AZITHROMYCIN 500 MG in SODIUM CHLORIDE 0.9% 250 ML IVPB ONE (16:24)
--- NOTE | 2024-05-19 16:31 | P.HPIM ---
History of Present Illness H&P Date: 05/19/24 18 year old F who is 7 weeks presents to the ED for cough and shortness of breath. Recently have COVID 19 2 weeks ago which she recovered from now with cough and chest pain only when coughing which started on Tuesday. 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 US was also done at that time showing single viable intrauterine . She was discharged home on Augmentin now returns back to the ED with worsening symptoms. In the ED she underwent extensive evaluation. T99F, BP 121/69, HR 87, RR 18, 98% on RA. CBC and BMP significant for Na 135, Cl 108, bicarb 20. CXR showing LASHELL opacity. Patient is started on Unasyn and Azithromycin and admitted for CAP. General: non toxic, no distress, appears at stated age Derm: warm, dry Head: atraumatic, normocephalic, symmetric Eyes: EOMI, no lid lag, anicteric sclera Mouth: no lip lesion, mucus membranes moist Cardiovascular: S1S2 reg, no murmur Lungs: Clear to auscultation bilaterally, no rhonchi, no rales , no accessory muscle use Ext: no gross muscle atrophy, no edema, no contractures Neuro: no focal neuro deficits Psych: Alert, oriented, appropriate affect Based on my assessment of this patient, this patient meets a high complexity level of care. Community acquired pneumonia: Continue Unasyn 3g IV TID and Azithromycin 500 IV QD. Obtain Sputum Cx. Pulmonary consult. : US 05/16 as above. CODE STATUS: FULL CODE. DVT Prophylaxis: Lovenox SQ. GI Prophylaxis: Designated medical POA if patient is not able to make medical decisions for themselves: I have reviewed the following information consultant notes: ED note. I have reviewed the results of the following tests: As above. I have ordered the following tests: As above. 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, liver issues, History of Any Multi-Drug Resistant Organisms: None Reported Past Surgical History: Ear Surgery Additional Past Surgical History / Comment(s): EAR TUBES, oral surgery 07/2021 Past Psychological History: Anxiety, Depression Smoking Status: Former smoker Past Alcohol Use History: None Reported Past Drug Use History: None Reported Medications and Allergies Home Medications Medication Instructions Recorded Confirmed Type Amoxic-Pot Clav 875-125Mg 1 tab PO Q12HR 7 Days #14 tab 05/16/24 05/19/24 Rx [Augmentin 875-125] Allergies Allergy/AdvReac Type Severity Reaction Status Date / Time No Known Allergies Allergy Verified 05/19/24 14:51 Physical Exam Vitals: Vital Signs Temp Pulse Resp BP Pulse Ox 05/19/24 14:58 91 20 145/86 95 05/19/24 12:53 99.0 F 87 18 121/69 98 Intake and Output 05/19/24 05/19/24 05/19/24 06:59 14:59 22:59 Other: Weight 117.934 kg Results CBC & Chem 7: 05/19/24 13:22 05/19/24 13:22 Labs: Abnormal Lab Results - Last 24 Hours (Table) 05/19/24 Range/Units 13:22 Sodium 135 L (137-145) mmol/L Chloride 108 H (98-107) mmol/L Carbon Dioxide 20 L (22-30) mmol/L
[2024-05-19] MEDS: PYRIDOXINE 50 MG TAB PO PRN (18:45)
[2024-05-20] MEDS: PRENATAL VIT-IRON-FOLIC ACID 1 EACH TABLET PO SCH (08:59)
--- NOTE | 2024-05-20 12:13 | P.CNPUL ---
History of Present Illness Consult date: 05/20/24 Requesting physician: Miguel A Veronica Reason for consult: dyspnea, abnormal CXR/CT Chief complaint: Shortness of breath, cough, congestion History of present illness: This is a very pleasant 18-year-old female patient who is 7 weeks who had developed increasing shortness of breath cough and congestion. She was seen here in the emergency room on 05/16/2024 and was discharged home on Augmentin. She came back to the emergency room yesterday with no significant improvement. Chest x-ray shows left upper lung airspace opacity compatible with pneumonia. White count 9.9. Hemoglobin 14.1. Platelets 292. Sodium 135. Potassium 4.2. Bicarb 20. BUN 7. Creatinine 0.53. D-dimer 0.93. He has been initiated on ceftriaxone and azithromycin. She is seen today in consultation on the regular medical floor. Currently sitting up in a chair at the bedside. Awake and alert in no acute distress. She is maintaining O2 saturations in the 90s on room air. She continues with a loose nonproductive cough. She has been afebrile. Hemodynamically stable. Review of Systems REVIEW OF SYSTEMS: CONSTITUTIONAL: Denies any recent significant weight loss or weight gain. EYES: Denies change in vision. EARS, NOSE, MOUTH, THROAT: Denies headaches, denies sore throat. CARDIOVASCULAR: Denies chest pain, palpitations or syncopal episodes. RESPIRATORY: Positive for shortness of breath, cough, congestion no hemoptysis. GASTROINTESTINAL: Denies change in appetite, denies abdominal pain GENITOURINARY: Denies hematuria, denies infections. MUSKULOSKELETAL: Denies pain, denies swelling. INTEGUMENTARY: Denies rash, denies eczema. NEUROLOGICAL: Denies recent memory loss, no recent seizure activity. PSYCHIATRIC: Denies anxiety, denies depression. HEMATOLOGIC/LYMPHATIC: Denies anemia, denies enlarged lymph nodes. 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, liver issues, History of Any Multi-Drug Resistant Organisms: None Reported Past Surgical History: Ear Surgery Additional Past Surgical History / Comment(s): EAR TUBES, oral surgery 07/2021 Additional Past Anesthesia/Blood Transfusion Reaction / Comment(s): na Past Psychological History: Anxiety, Depression Smoking Status: Former smoker Past Alcohol Use History: None Reported Past Drug Use History: None Reported - Past Family History Mother Family Medical History: Diabetes Mellitus, Hypertension Additional Family Medical History / Comment(s): bipolar Father Family Medical History: Hyperlipidemia Additional Family Medical History / Comment(s): adha, bipolar, diverticulitis Brother(s) History Unknown: Yes Medications and Allergies Home Medications Medication Instructions Recorded Confirmed Type Amoxic-Pot Clav 875-125Mg 1 tab PO Q12HR 7 Days #14 tab 05/16/24 05/19/24 Rx [Augmentin 875-125] Allergies Allergy/AdvReac Type Severity Reaction Status Date / Time No Known Allergies Allergy Verified 05/19/24 14:51 Physical Exam Vitals: Vital Signs Temp Pulse Pulse Resp BP BP Pulse Ox 05/20/24 07:29 98.4 F 80 16 126/73 98 05/20/24 01:03 98.8 F 90 17 145/77 100 05/19/24 19:19 98.0 F 89 17 107/65 96 05/19/24 16:06 97.8 F 71 16 123/71 98 05/19/24 14:58 91 20 145/86 95 05/19/24 12:53 99.0 F 87 18 121/69 98 Intake and Output 05/19/24 05/20/24 05/20/24 22:59 06:59 14:59 Intake Total 118 Output Total 50 Balance 68 Intake: Oral 118 Output: Emesis 50 Other: Voiding Method Toilet Toilet # Voids 1 1 Weight 117.934 kg GENERAL EXAM: Alert, pleasant 18-year-old female, sitting up in a chair, on room air, comfortable in no apparent distress. HEAD: Normocephalic. EYES: Normal reaction of pupils, equal size. NOSE: Clear with pink turbinates. THROAT: No erythema or exudates. NECK: No masses, no JVD. CHEST: No chest wall deformity. LUNGS: Equal air entry with few scattered rhonchi. CVS: S1 and S2 normal with no audible murmur, regular rhythm. ABDOMEN: No hepatosplenomegaly, normal bowel sounds, no guarding or rigidity. SPINE: No scoliosis or deformity SKIN: No rashes CENTRAL NERVOUS SYSTEM: No focal deficits, tone is normal in all 4 extremities. EXTREMITIES: There is no peripheral edema. No clubbing, no cyanosis. Peripheral pulses are intact. Results - Laboratory Findings CBC and BMP: 05/19/24 13:22 05/19/24 13:22 PT/INR, D-dimer D-Dimer 0.93 mg/L FEU (<0.60) H 05/20/24 10:30 Abnormal lab findings: Abnormal Labs 05/19/24 05/20/24 13:22 10:30 D-Dimer 0.93 H Sodium 135 L Chloride 108 H Carbon Dioxide 20 L - Diagnostic Findings Chest x-ray: image reviewed Assessment and Plan Assessment: Dyspnea secondary to suspected left upper lobe pneumonia, procalcitonin pending, failed outpatient treatment , 7 weeks gestation Plan: The patient was seen and evaluated Chest x-ray, labs and medications reviewed Check a procalcitonin Check a D-dimer, Doppler of the lower extremities Continue antibiotics for now If positive for DVT will do CT angiogram Remains stable and on room air We will continue to follow and make further recommendations based on her clinical status I have personally seen and examined the patient, performed the documentation and the assessment and plan as written. Number of minutes spent on the visit: 20. Dictation was produced using [employer] software. Please excuse any grammatical, word or spelling errors.
--- NOTE | 2024-05-20 12:54 | P.PN ---
Subjective Progress Note Date: 05/20/24 18 year old F who is 7 weeks presents to the ED for cough and shortness of breath. Recently have COVID 19 2 weeks ago which she recovered from now with cough and chest pain only when coughing which started on Tuesday. 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 US was also done at that time showing single viable intrauterine . She was discharged home on Augmentin now returns back to the ED with worsening symptoms. In the ED she underwent extensive evaluation. T99F, BP 121/69, HR 87, RR 18, 98% on RA. CBC and BMP significant for Na 135, Cl 108, bicarb 20. CXR showing LASHELL opacity. Patient is started on Unasyn and Azithromycin and admitted for CAP. 05/20 Patient was seen and examined. Doing well. Cough improved. Pulmonary recommends Procal, DDimer and venous duplex. General: non toxic, no distress, appears at stated age Derm: warm, dry Head: atraumatic, normocephalic, symmetric Eyes: EOMI, no lid lag, anicteric sclera Mouth: no lip lesion, mucus membranes moist Cardiovascular: good distal perfusion in all 4 extremities Lungs: breathing comfortably, no accessory muscle use Ext: no gross muscle atrophy, no edema, no contractures Neuro: no focal neuro deficits Psych: Alert, oriented, appropriate affect Based on my assessment of this patient, this patient meets a high complexity level of care. Community acquired pneumonia: Continue Unasyn 3g IV TID and Azithromycin 500 IV QD. Obtain Sputum Cx. Procal and D-Dimer ordered by Pulmonary. : US 05/16 as above. CODE STATUS: FULL CODE. DVT Prophylaxis: GI Prophylaxis: Designated medical POA if patient is not able to make medical decisions for themselves: I have reviewed the following internet sales consultant notes: Pulmonary note. I have reviewed the results of the following tests: I have ordered the following tests: I have discussed the care of this patient with the following independent historian: RN. Significant other at bedside. I have independently interpreted the following test below: I have discussed the management of this patient with the following physician: Objective - Vital Signs Vital signs: Vital Signs Temp 98.4 F 05/20/24 07:29 Pulse 80 05/20/24 07:29 Resp 16 05/20/24 07:29 BP 126/73 05/20/24 07:29 Pulse Ox 98 05/20/24 07:29 FiO2 Intake & Output 05/19/24 05/20/24 05/20/24 18:59 06:59 18:59 Intake Total 118 Output Total 50 Balance -50 118 Weight 117.934 kg Intake: Oral 118 Output: Emesis 50 Other: Voiding Method Toilet Toilet # Voids 1 1 - Labs CBC & Chem 7: 05/19/24 13:22 05/19/24 13:22 Labs: Abnormal Lab Results - Last 24 Hours (Table) 05/19/24 05/20/24 Range/Units 13:22 10:30 D-Dimer 0.93 H (<0.60) mg/L FEU Sodium 135 L (137-145) mmol/L Chloride 108 H (98-107) mmol/L Carbon Dioxide 20 L (22-30) mmol/L
--- NOTE | 2024-05-20 14:29 | US ---
EXAMINATION TYPE: US venous doppler duplex LE BI DATE OF EXAM: 05/20/2024 11:16 AM COMPARISON: NONE CLINICAL INDICATION: Female, 18 years old with history of elevated d dimer, r/o dvt; , Pain, Swelling TECHNIQUE: The lower extremity deep venous system is examined utilizing real time linear array sonog ginna with graded compression, color doppler sonography, and spectral doppler. SIDE PERFORMED: Bilateral FINDINGS: VESSELS IMAGED: Common Femoral Vein Deep Femoral Vein Greater Saphenous Vein * Femoral Vein Popliteal Vein Small Saphenous Vein * Proximal Calf Veins (* superficial vessels) Right Leg: Negative for DVT Left Leg: Negative for DVT IMPRESSION: No ultrasound evidence for deep venous thrombosis. [facility], , 05/20/2024 2:27 PM
[2024-05-20] MEDS: AZITHROMYCIN 500 MG in SODIUM CHLORIDE 0.9% 250 ML IVPB SCH (16:13)
[2024-05-21 07:51] VITALS: BP 148/77; PULSE 81; RESP 18; TEMP 98.6
--- NOTE | 2024-05-21 10:00 | P.DS ---
Providers Date of admission: 05/19/24 14:18 Expected date of discharge: 05/21/24 Attending physician: Miguel A Veronica Consults: 05/19/24 14:18 Consult Physician Routine Consulting Provider: Mckay Rivera Consult Reason/Comments: pneumonia, failed outpatient treatment Do you want consulting provider notified?: Yes Primary care physician: [facility] Course: 18 year old F who is 7 weeks presents to the ED for cough and shortness of breath. Recently have COVID 19 2 weeks ago which she recovered from now with cough and chest pain only when coughing which started on Tuesday. 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 US was also done at that time showing single viable intrauterine . She was discharged home on Augmentin now returns back to the ED with worsening symptoms. In the ED she underwent extensive evaluation. T99F, BP 121/69, HR 87, RR 18, 98% on RA. CBC and BMP significant for Na 135, Cl 108, bicarb 20. CXR showing LASHELL opacity. Patient is started on Unasyn and Azithromycin and admitted for CAP. 05/20 Patient was seen and examined. Doing well. Cough improved. Pulmonary recommends Procal, DDimer and venous duplex. Unasyn switched to Ropcehin. Continued on Azithromycin. 05/21 Patient was seen and examined. Cough improved. Doing well. Procal was negative. D-Dimer elevated at 0.93. Venous Duplex negative. Her Wells score is 0. D-Dimer likely elevated due to . Plans for discharge home on Augmentin for 2 more days to complete a total of 5 days antibiotics for treatment of uncomplicated CAP. General: non toxic, no distress, appears at stated age Derm: warm, dry Head: atraumatic, normocephalic, symmetric Eyes: EOMI, no lid lag, anicteric sclera Mouth: no lip lesion, mucus membranes moist Cardiovascular: good distal perfusion in all 4 extremities Lungs: breathing comfortably, no accessory muscle use Ext: no gross muscle atrophy, no edema, no contractures Neuro: no focal neuro deficits Psych: Alert, oriented, appropriate affect Discharge Diagnosis: Community acquired pneumonia This complex discharge took 35 minutes to complete. Patient Condition at Discharge: Stable Plan - Discharge Summary Discharge Rx Participant: No New Discharge Prescriptions: New Vit No.179/Iron/Folic [ Tablet] 1 each PO DAILY #30 tab Acetaminophen Tab [Tylenol] 650 mg PO Q6HR PRN tab PRN Reason: Mild Pain Or Fever > 100.5 Pyridoxine [Vitamin B-6] 25 mg PO QID PRN tab PRN Reason: Nausea Continue Amoxic-Pot Clav 875-125Mg [Augmentin 875-125] 1 tab PO Q12HR 2 Days #14 tab Discharge Medication List Acetaminophen Tab [Tylenol] 650 mg PO Q6HR PRN tab 05/21/24 [Rx] Amoxic-Pot Clav 875-125Mg [Augmentin 875-125] 1 tab PO Q12HR 2 Days #14 tab 05/21/24 [Rx] Vit No.179/Iron/Folic [ Tablet] 1 each PO DAILY #30 tab 05/21/24 [Rx] Pyridoxine [Vitamin B-6] 25 mg PO QID PRN tab 05/21/24 [Rx] Follow up Appointment(s)/Referral(s): Mckay Rivera MD [STAFF PHYSICIAN] - 1 Week Yusef Cruz DO [Primary Care Provider] - 1-2 days Discharge Disposition: HOME SELF-CARE
--- NOTE | 2024-05-21 11:41 | P.PN ---
Subjective Progress Note Date: 05/21/24 This is a very pleasant 18-year-old female patient who is 7 weeks who had developed increasing shortness of breath cough and congestion. She was seen here in the emergency room on 05/16/2024 and was discharged home on Augmentin. She came back to the emergency room yesterday with no significant improvement. Chest x-ray shows left upper lung airspace opacity compatible with pneumonia. White count 9.9. Hemoglobin 14.1. Platelets 292. Sodium 135. Potassium 4.2. Bicarb 20. BUN 7. Creatinine 0.53. D-dimer 0.93. He has been initiated on ceftriaxone and azithromycin. She is seen today in consultation on the regular medical floor. Currently sitting up in a chair at the bedside. Awake and alert in no acute distress. She is maintaining O2 saturations in the 90s on room air. She continues with a loose nonproductive cough. She has been afebrile. Hemodynamically stable. The patient is seen today May 21, 2024 in follow-up on the regular medical floor. She is currently sitting up in bed having breakfast. Awake and alert in no acute distress. Feeling quite a bit better today compared to yesterday. Less cough and congestion. Denies any significant shortness of breath. She is maintaining O2 saturations in the 90s on room air. Dopplers of the lower extremity were negative for DVT. Procalcitonin was negative at 0.07. She is continued on ceftriaxone and azithromycin. Normal saline at KVO. Objective - Vital Signs Vital signs: Vital Signs Temp 98.6 F 05/21/24 07:50 Pulse 81 05/21/24 07:50 Resp 18 05/21/24 07:50 BP 148/77 05/21/24 07:50 Pulse Ox 97 05/21/24 07:50 FiO2 Intake & Output 05/20/24 05/21/24 05/21/24 18:59 06:59 18:59 Intake Total 236 Balance 236 Intake: Oral 236 Other: Voiding Method Toilet Toilet # Voids 2 - Exam GENERAL EXAM: Alert, pleasant 18-year-old female, sitting up in bed, on room air, comfortable in no apparent distress. HEAD: Normocephalic. EYES: Normal reaction of pupils, equal size. NOSE: Clear with pink turbinates. THROAT: No erythema or exudates. NECK: No masses, no JVD. CHEST: No chest wall deformity. LUNGS: Equal air entry with few scattered rhonchi. CVS: S1 and S2 normal with no audible murmur, regular rhythm. ABDOMEN: No hepatosplenomegaly, normal bowel sounds, no guarding or rigidity. SPINE: No scoliosis or deformity SKIN: No rashes CENTRAL NERVOUS SYSTEM: No focal deficits, tone is normal in all 4 extremities. EXTREMITIES: There is no peripheral edema. No clubbing, no cyanosis. Peripheral pulses are intact. - Labs CBC & Chem 7: 05/19/24 13:22 05/19/24 13:22 Assessment and Plan Assessment: Dyspnea secondary to suspected left upper lobe pneumonia, procalcitonin negative, failed outpatient treatment , 7 weeks gestation Plan: The patient was seen and evaluated Imaging, labs and medications reviewed Remains stable and on room air Procalcitonin negative Cleared for discharge from the pulmonary standpoint Follow-up closely with her PCP This patient was seen independently by the pulmonary nurse practitioner addressing pulmonary issues I have personally seen and examined the patient, performed the documentation and the assessment and plan as written. Number of minutes spent on the visit: 22. Dictation was produced using [employer] software. Please excuse any grammatical, word or spelling errors.
== END 2024-05-21 11:05 | disposition home or self-care (01) ==
LOC: EC 12:35 → 6NMEDSUR 14:18 → 5NMEDONC 15:07
PROVIDERS: ADMIT Student in an Organized Health Care Education/Training Program; ATTEND Student in an Organized Health Care Education/Training Program
DX: O99.511 Diseases of the respiratory system complicating pregnancy, first trimester (principal); J18.9 Pneumonia, unspecified organism; Z86.16 Personal history of COVID-19; Z87.891 Personal history of nicotine dependence; Z3A.01 Less than 8 weeks gestation of pregnancy
CPT/HCPCS: 96366 ×3; 96367 ×2; 96361; 96365; 99285; 36415; 85379; 86738; 80048; 85025; 84145; 71046; 93970; G0378 ×4; J0456 ×2; J0696 ×2; J0295 ×2; S0197 ×2

== ENCOUNTER → 2024-06-05 | Outpatient (CLI) | payer OTHER ==
[2024-06-06 03:56] LABS: Basophils # (A) 0.07 X 10*3/uL (0.00-0.10); Basophils % (A) 0.7 %; Eosinophils # (A) 0.04 X 10*3/uL (0.04-0.35); Eosinophils % (A) 0.4 %; HCT 39.7 % (37.2-46.3); HGB 13.2 g/dL (12.0-15.0); Lymphocytes # (A) 3.01 X 10*3/uL (0.90-5.00); Lymphocytes % (A) 31.4 %; MCH 29.9 pg (27.0-32.0); MCHC 33.2 g/dL (32.0-37.0); MCV 89.8 FL (80.0-97.0); Mean Platelet Volume 11.1 FL (9.5-12.2); Monocytes # (A) 0.82 X 10*3/uL (0.20-1.00); Monocytes % (A) 8.5 %; NRBC Per 100 WBC 0 X 10*3/uL (0.00-0.01); Neutrophils # (A) 5.64 X 10*3/uL (1.80-7.70); Neutrophils % (A) 58.8 %; Platelet Count 376 X 10*3/uL (140-440); RBC 4.42 X 10*6/uL (4.10-5.20); RDW 12.5 % (11.5-14.5)
== END | disposition home or self-care (01) ==
LOC: LABPAT 15:34
PROVIDERS: ATTEND Obstetrics & Gynecology
DX: Z01.812 Encounter for preprocedural laboratory examination (principal)
CPT/HCPCS: 84702; 85025; 86850; 86900; 86901

== ENCOUNTER → 2024-06-06 | Day surgery (SDC) | payer OTHER ==
[~2024-06-06] MED LIST: DOXYCYCLINE 100 MG CAP PO SCH; HYDROmorphone 0.5 MG/0.5 ML SYRINGE IVP PRN; LIDOCAINE 1% INJ 10MG/ML (20 ML MDV) ONE; MIDAZOLAM 2 MG/2 ML VIAL ONE; PROPOFOL 10 MG/ML 20 ML VIAL IV ONE; SUCCINYLCHOLINE CHLORIDE 200 MG/10 ML VIAL IV ONE; fentaNYL (PF) 50 MCG/ML 2 ML AMP ONE
[2024-06-06] MEDS: IV FLUID CONTINUATION 1,000 ML IV ONE (11:06)
[2024-06-06] MEDS: DEXAMETHASONE SOD PHOSPHATE 4 MG/ML 1 ML VIAL IV ONE (11:22)
[2024-06-06] MEDS: ONDANSETRON 4 MG/2 ML VIAL IVP ONE (11:22)
[2024-06-06] MEDS: DOXYCYCLINE 100 MG CAP PO PRN (11:22)
[2024-06-06] MEDS: MIDAZOLAM 2 MG/2 ML VIAL IV ONE (11:23)
[2024-06-06] MEDS: LACTATED RINGERS 1,000 ML IV SCH (11:27)
--- NOTE | 2024-06-06 12:34 | P.OP ---
Date of Procedure: 06/06/24 Preoperative Diagnosis: 1. Missed 9 weeks gestation Postoperative Diagnosis: Same Procedure(s) Performed: Suction Dilation and Curettage Implants: None Anesthesia: NAI Surgeon: Griselda Gramajo Estimated Blood Loss (ml): 200 IV fluids (ml): 500 Urine output (ml): 400 Pathology: other (products of conception) Condition: stable Disposition: same day Indications for Procedure: Ms. Royal is a 18 year old at approximately 9 weeks and 4 days gestation presenting with missed diagnosed 2 days ago via ultrasound showing a CRL of 19mm without heart tones. Risks, benefits, and alternatives to suction D&C were discussed with the patient including risk of bleeding, infection, uterine perforation, and damage to surrounding structures. The patient understands these risks and desires to proceed with surgery as discussed. All questions answered. Operative Findings: Moderate amount of products of conception Description of Procedure: PThe patient was taken to the operating room where a general anesthetic was administered. She was then positioned in the dorsal lithotomy position and prepped and draped in the normal sterile fashion. Once the anesthetic was found to be adequate, a bimanual exam was performed under anesthetic. Next, a weighted speculum was placed in the vagina. The anterior lip of cervix was grasped with t he tenaculum and is sounded to 8cm. The cervix is then carefully dilated with Ricci dilators to accomodate the suction curette. An 8mm suction curette was connected to the suction and was placed in the cervix and a suction curettage was performed. Two passes were made with the suction curettage. Next, a sharp curettage was performed obtaining a small amount of tissue and this was followed by third suction curettage. After the procedure, the tenaculum was removed. The cervix was hemostatic. The weighted speculum was removed. After the procedure, a second bimanual exam was performed and the patient's uterus had significantly decreased in size.The patient was taken from the operating room in stable condition after she was cleaned. She will be discharged home today and will follow up in the office in 2 weeks.
[2024-06-06 12:47] VITALS: TEMP 98.8
[2024-06-06 13:54] VITALS: RESP 18
[2024-06-06 13:56] VITALS: BP 137/76; PULSE 76
[2024-06-07] MEDS: Rhogam IMMUNE GLOBULIN 1,500 UNIT/1 ML IM ONE (08:32)
== END | disposition home or self-care (01) ==
LOC: OR 10:43
PROVIDERS: ATTEND Obstetrics & Gynecology
DX: O02.1 Missed abortion (principal); K21.9 Gastro-esophageal reflux disease without esophagitis; E66.01 Morbid (severe) obesity due to excess calories; F17.200 Nicotine dependence, unspecified, uncomplicated
CPT/HCPCS: 59820; 86900; 86901; 88305; 86850; J2250; J0330; J1100; J2405; J2003; J3010; J2704

== ENCOUNTER 2024-09-28 23:09 | Emergency (ER) | payer OTHER ==
[2024-09-28 23:16] VITALS: BP 148/84; PULSE 89; RESP 18; TEMP 98.6
[2024-09-29 00:17] LABS: Basophils % (A) 1 %; Eosinophils # (A) 0.1 k/uL (0-0.7); Eosinophils % (A) 1 %; HCT 42.7 % (34.0-46.0); HGB 13.6 gm/dL (11.4-16.0); Lymphocytes # (A) 2.9 k/uL (1.0-4.8); Lymphocytes % (A) 30 %; MCH 29.3 pg (25.0-35.0); MCHC 31.8 g/dL (31.0-37.0); MCV 92.1 fL (80.0-100.0); Mean Platelet Volume 7.8; Monocytes # (A) 0.5 k/uL (0-1.0); Monocytes % (A) 5 %; Neutrophils # (A) 5.9 k/uL (1.3-7.7); Neutrophils % (A) 61 %; Platelet Count 375 k/uL (150-450); RBC 4.64 m/uL (3.80-5.40); RDW 12.4 % (11.5-15.5); WBC 9.6 k/uL (4.0-11.0)
[2024-09-29 00:36] LABS: ALT 38 U/L (4-34); AST 22 U/L (14-36); African American GFR (CKD) >90 (>60 ml/min/1.73 sqM); Alkaline Phosphatase 43 U/L (38-126); Anion Gap 8 mmol/L; Blood Urea Nitrogen 11 mg/dL (7-17); Calcium 9.2 mg/dL (8.4-10.2); Carbon Dioxide 22 mmol/L (22-30); Chloride 105 mmol/L (98-107); Glucose 96 mg/dL (74-99); Non-African American GFR(CKD) >90 (>60 ml/min/1.73 sqM); Potassium 4.5 mmol/L (3.5-5.1); Sodium 135 mmol/L (137-145); Total Bilirubin 0.3 mg/dL (0.2-1.3); Total Protein 6.6 g/dL (6.3-8.2)
[2024-09-29 00:45] LABS: Appearance,Urine Cloudy (Clear); Bacteria,Urine Rare /hpf; Bilirubin,Urine Negative (Negative); Blood,Urine Negative (Negative); Budding Yeast,Urine Rare /hpf; Color,Urine Colorless; Glucose,Urine (UA) Negative (Negative); Ketones,Urine Negative (Negative); Leukocyte Esterase,Urine Negative (Negative); Mucus,Urine Rare /hpf; Nitrite,Urine Negative (Negative); Protein,Urine Negative (Negative); RBC,Urine <1 /hpf (0-5); Specific Gravity,Urine 1.015 (1.001-1.035); Squamous Epithelial Cell,Urine 18 /hpf (0-4); Urobilinogen,Urine <2.0 mg/dL (<2.0); WBC,Urine 2 /hpf (0-5)
--- NOTE | 2024-09-29 00:59 | US ---
EXAM: US First Trimester , Transabdominal CLINICAL HISTORY: ITS.REASON US Reason: 6 weeks , pain TECHNIQUE: Real-time transabdominal obstetrical ultrasound of the maternal pelvis and a first trimester with image documentation. COMPARISON: No previous studies. FINDINGS: Gestation: Yolk sac and pole are not visualized. A pseudo- gestational sac of ectopic therefore cannot be excluded. Single intrauterine gestation is noted. Mean sac diameter of 0.7 cm corresponds to a gestational age of 5 weeks 2 days. Placenta/amniotic fluid: Cannot be adequately evaluated due to the early gestational age. Uterus/cervix: The uterus measures 11.8 x 5.2 x 4.1 cm. No myometrial mass. Ovaries: Right ovary measures 3.9 x 2.2 x 2.2 cm. Left ovary measures 2.7 x 2.7 cm. No mass. Free fluid: Minimal simple free fluid within the posterior cul-de-sac. No free fluid. IMPRESSION: Possible very early intrauterine gestational sac of 5 weeks 2 days without a pole or yolk sac. A pseudo-gestational sac of ectopic cannot be excluded. No free fluid. Clinical correlation, correlation with laboratory values, repeat imaging in one week are advised.
--- NOTE | 2024-09-29 02:10 | ED ---
Abdominal Pain HPI - General Chief Complaint: OB/Uterine Contractions Stated Complaint: R Pelvic Pain (6 Weeks) Time Seen by Provider: 09/28/24 23:15 Source: patient Mode of arrival: ambulatory Limitations: no limitations - History of Present Illness Initial Comments: 19-year-old female who is who presents to the emergency department with pelvic pain. Patient last menstrual cycle was August 15. She is approximately 6 weeks 4 days . She follows with Dr. Gramajo. She was at work today when she felt sudden pain in her right lower quadrant. She denies vaginal bleeding. Has had history of miscarriage in the past. She denies fevers. No vaginal discharge. No changes in her bowel or bladder habits. No other alleviating, precipitating or modifying factors - Related Data Home Medications Medication Instructions Recorded Confirmed No Known Home Medications 06/04/24 06/06/24 Allergies Allergy/AdvReac Type Severity Reaction Status Date / Time No Known Allergies Allergy Verified 09/28/24 23:16 Review of Systems ROS Statement: Those systems with pertinent positive or pertinent negative responses have been documented in the HPI. ROS Other: All systems not noted in ROS Statement are negative. 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 05/19/24-05/21/24 History of Any Multi-Drug Resistant Organisms: None Reported Past Surgical History: Ear Surgery Additional Past Surgical History / Comment(s): EAR TUBES, oral surgery 07/2021, [facility] Past Anesthesia/Blood Transfusion Reactions: No Reported Reaction Additional Past Anesthesia/Blood Transfusion Reaction / Comment(s): na Past Psychological History: Anxiety, Depression Smoking Status: Current every day smoker Past Alcohol Use History: Rare Past Drug Use History: None Reported - Past Family History Mother Family Medical History: Diabetes Mellitus, Hypertension Additional Family Medical History / Comment(s): bipolar Father Family Medical History: Hyperlipidemia Additional Family Medical History / Comment(s): adha, bipolar, diverticulitis Brother(s) History Unknown: Yes General Exam Limitations: no limitations General appearance: alert, in no apparent distress Head exam: Present: atraumatic, normocephalic, normal inspection Eye exam: Present: normal appearance, PERRL, EOMI. Absent: scleral icterus, conjunctival injection, periorbital swelling ENT exam: Present: normal exam, mucous membranes moist Neck exam: Present: normal inspection. Absent: tenderness, meningismus, lymphadenopathy Respiratory exam: Present: normal lung sounds bilaterally. Absent: respiratory distress, wheezes, rales, rhonchi, stridor Cardiovascular Exam: Present: regular rate, normal rhythm, normal heart sounds. Absent: systolic murmur, diastolic murmur, rubs, gallop, clicks GI/Abdominal exam: Present: soft, tenderness (Right inguinal region), normal bowel sounds. Absent: distended, guarding, rebound, rigid Extremities exam: Present: normal inspection, full ROM, normal capillary refill. Absent: tenderness, pedal edema, joint swelling, calf tenderness Back exam: Present: normal inspection Neurological exam: Present: alert, oriented X3, CN II-XII intact Psychiatric exam: Present: normal affect, normal mood Skin exam: Present: warm, dry, intact, normal color. Absent: rash Course Vital Signs 09/28/24 23:14 Temperature 98.6 F Pulse Rate 89 Respiratory 18 Rate Blood Pressure 148/84 O2 Sat by Pulse 100 Oximetry Medical Decision Making - Medical Decision Making Was pt. sent in by a medical professional or institution (, PA, DIRECTOR OF PRODUCT DESIGN, urgent care, hospital, or retirement...) When possible be specific @ -No Did you speak to anyone other than the patient for history (EMS, parent, family, police, friend...)? What history was obtained from this source @ -No Did you review nursing and triage notes (agree or disagree)? Why? @ -I reviewed and agree with nursing and triage notes Were old charts reviewed (outside hosp., previous admission, EMS record, old EKG, old radiological studies, urgent care reports/EKG's, retirement records)? Report findings @ -No old charts were reviewed Differential Diagnosis (chest pain, altered mental status, abdominal pain women, abdominal pain men, vaginal bleeding, weakness, fever, dyspnea, syncope, headache, dizziness, GI bleed, back pain, seizure, CVA, palpatations, mental health, musculoskeletal)? @ -Differential Vaginal Pain Spontaneous , threatened , molar , ectopic , bloody show, incompetent cervix, abruptioplacenta, placenta previa, uterine rupture, dysfunctional uterine bleeding, hemorrhage, uterine fibroids, this is not meant to be an all-inclusive list. EKG interpreted by me (3pts min.). @ -Not done X-rays interpreted by me (1pt min.). @ -None done CT interpreted by me (1pt min.). @ -None done U/S interpreted by me (1pt. min.). @ -Yes which demonstrates possible intrauterine at 5 weeks 2 days. Pseudo IUP with ectopic also considered What testing was considered but not performed or refused? (CT, X-rays, U/S, labs)? Why? @ -None What meds were considered but not given or refused? Why? @ -None Did you discuss the management of the patient with other professionals (professionals i.e. , PA, DIRECTOR OF PRODUCT DESIGN, lab, RT, psych nurse, executive secretary social welfare, hose operator, teacher, project control officer, medical case manager)? Give summary @ -No Was smoking cessation discussed for >3mins.? @ -No Was critical care preformed (if so, how long)? @ -No Were there social determinants of health that impacted care today? How? (Homelessness, low income, unemployed, alcoholism, drug addiction, transportation, low edu. Level, literacy, decrease access to med. care, mcc, rehab)? @ -No Was there de-escalation of care discussed even if they declined (Discuss DNR or withdrawal of care, Hospice)? DNR status @ -No What co-morbidities impacted this encounter? (DM, HTN, Smoking, COPD, CAD, Cancer, CVA, ARF, Chemo, Hep., AIDS, mental health diagnosis, sleep apnea, morbid obesity)? @ -None Was patient admitted / discharged? Hospital course, mention meds given and route, prescriptions, significant lab abnormalities, going to OR and other pertinent info. @ -Upon arrival patient seen and evaluated in bed 15. Thorough history and physical exam was performed. Laboratory studies are conducted. Ultrasound was performed. Informed the patient that there appears to be a possible start of inside the uterus however does not show everything needed at this time. Patient will require repeat beta quant in 48 hours and repeat ultrasound in 1 to 2 weeks. Patient will have her labs drawn at the outpatient lab in 48 hours. Results will be sent with her [facility]. She is to follow-up with the [facility] for repeat ultrasound. Return for any new or worsening symptoms. Patient agreeable to plan was discharged in stable condition Undiagnosed new problem with uncertain prognosis? @ -No Drug Therapy requiring intensive monitoring for toxicity (Heparin, Nitro, Insulin, Cardizem)? @ -No Were any procedures done? @ -No Diagnosis/symptom? @ -Acute pelvic pain, of undetermined location Acute, or Chronic, or Acute on Chronic? @ -Acute Uncomplicated (without systemic symptoms) or Complicated (systemic symptoms)? @ -Complicated Side effects of treatment? @ -No Exacerbation, Progression, or Severe Exacerbation? @ -No Poses a threat to life or bodily function? How? (Chest pain, USA, MD, pneumonia, PE, COPD, DKA, ARF, appy, cholecystitis, CVA, Diverticulitis, Homicidal, Suicidal, threat to staff... and all critical care pts) @ -Yes this patient must follow-up to verify that she does have an intrauterine - Lab Data Result diagrams: 09/29/24 00:04 09/29/24 00:04 Lab Results 09/29/24 09/29/24 09/29/24 Range/Units 00:04 00:04 00:04 WBC 9.6 (4.0-11.0) k/uL RBC 4.64 (3.80-5.40) m/uL Hgb 13.6 (11.4-16.0) gm/dL Hct 42.7 (34.0-46.0) % MCV 92.1 (80.0-100.0) fL MCH 29.3 (25.0-35.0) pg MCHC 31.8 (31.0-37.0) g/dL RDW 12.4 (11.5-15.5) % Plt Count 375 (150-450) k/uL MPV 7.8 Neutrophils % 61 % Lymphocytes % 30 % Monocytes % 5 % Eosinophils % 1 % Basophils % 1 % Neutrophils # 5.9 (1.3-7.7) k/uL Lymphocytes # 2.9 (1.0-4.8) k/uL Monocytes # 0.5 (0-1.0) k/uL Eosinophils # 0.1 (0-0.7) k/uL Basophils # 0.0 (0-0.2) k/uL Sodium 135 L (137-145) mmol/L Potassium 4.5 (3.5-5.1) mmol/L Chloride 105 (98-107) mmol/L Carbon Dioxide 22 (22-30) mmol/L Anion Gap 8 mmol/L BUN 11 (7-17) mg/dL Creatinine 0.57 (0.52-1.04) mg/dL Est GFR (CKD-EPI)AfAm >90 (>60 ml/min/1.73 sqM) Est GFR (CKD-EPI)NonAf >90 (>60 ml/min/1.73 sqM) Glucose 96 (74-99) mg/dL Calcium 9.2 (8.4-10.2) mg/dL Total Bilirubin 0.3 (0.2-1.3) mg/dL AST 22 (14-36) U/L ALT 38 H (4-34) U/L Alkaline Phosphatase 43 (38-126) U/L Total Protein 6.6 (6.3-8.2) g/dL Albumin 4.0 (3.5-5.0) g/dL HCG, Quant mIU/mL Urine Color Urine Appearance (Clear) Urine pH (5.0-8.0) Ur Specific [place] (1.001-1.035) Urine Protein (Negative) Urine Glucose (UA) (Negative) Urine Ketones (Negative) Urine Blood (Negative) Urine Nitrite (Negative) Urine Bilirubin (Negative) Urine Urobilinogen (<2.0) mg/dL Ur Leukocyte Esterase (Negative) Urine RBC (0-5) /hpf Urine WBC (0-5) /hpf Ur Squamous Epith Cells (0-4) /hpf Urine Bacteria (None) /hpf Urine Mucus (None) /hpf Urine Yeast (Budding) (None) /hpf Urine HCG, Qual (Not Detectd) Blood Type A Positive Blood Type Recheck A Pos Bld Type Recheck Status No Antibody Screen NEGATIVE Spec Expiration Date 10/02/2024230309/29/24 09/29/24 09/29/24 Range/Units 00:04 00:16 00:16 WBC (4.0-11.0) k/uL RBC (3.80-5.40) m/uL Hgb (11.4-16.0) gm/dL Hct (34.0-46.0) % MCV (80.0-100.0) fL MCH (25.0-35.0) pg MCHC (31.0-37.0) g/dL RDW (11.5-15.5) % Plt Count (150-450) k/uL MPV Neutrophils % % Lymphocytes % % Monocytes % % Eosinophils % % Basophils % % Neutrophils # (1.3-7.7) k/uL Lymphocytes # (1.0-4.8) k/uL Monocytes # (0-1.0) k/uL Eosinophils # (0-0.7) k/uL Basophils # (0-0.2) k/uL Sodium (137-145) mmol/L Potassium (3.5-5.1) mmol/L Chloride (98-107) mmol/L Carbon Dioxide (22-30) mmol/L Anion Gap mmol/L BUN (7-17) mg/dL Creatinine (0.52-1.04) mg/dL Est GFR (CKD-EPI)AfAm (>60 ml/min/1.73 sqM) Est GFR (CKD-EPI)NonAf (>60 ml/min/1.73 sqM) Glucose (74-99) mg/dL Calcium (8.4-10.2) mg/dL Total Bilirubin (0.2-1.3) mg/dL AST (14-36) U/L ALT (4-34) U/L Alkaline Phosphatase (38-126) U/L Total Protein (6.3-8.2) g/dL Albumin (3.5-5.0) g/dL HCG, Quant 4373.5 mIU/mL Urine Color Colorless Urine Appearance Cloudy H (Clear) Urine pH 7.0 (5.0-8.0) Ur Specific [place] 1.015 (1.001-1.035) Urine Protein Negative (Negative) Urine Glucose (UA) Negative (Negative) Urine Ketones Negative (Negative) Urine Blood Negative (Negative) Urine Nitrite Negative (Negative) Urine Bilirubin Negative (Negative) Urine Urobilinogen <2.0 (<2.0) mg/dL Ur Leukocyte Esterase Negative (Negative) Urine RBC <1 (0-5) /hpf Urine WBC 2 (0-5) /hpf Ur Squamous Epith Cells 18 H (0-4) /hpf Urine Bacteria Rare H (None) /hpf Urine Mucus Rare H (None) /hpf Urine Yeast (Budding) Rare H (None) /hpf Urine HCG, Qual Detected (Not Detectd) Blood Type Blood Type Recheck Bld Type Recheck Status Antibody Screen Spec Expiration Date Disposition Clinical Impression: Abdominal pain, First trimester Disposition: HOME SELF-CARE Condition: Stable Instructions (If sedation given, give patient instructions): Abdominal Pain in (ED) Additional Instructions: You will need a repeat beta HCG in 48 hours. Return to the outpatient lab to have your labs drawn. Your results will be in your MyChart and will also be sent to the [facility] office. They should double in the next 48 hours. You will need a repeat ultrasound in 2 to 3 weeks. If you have any new or worsening symptoms to include bleeding, return to the emergency department Is patient prescribed a controlled substance at d/c from ED?: No Referrals: Yusef Cruz DO [Primary Care Provider] - 1-2 days Griselda Gramajo MD [STAFF PHYSICIAN] - 1-2 days Time of Disposition: 02:10
== END 2024-09-29 02:22 | disposition home or self-care (01) ==
LOC: EC 23:09
DX: O26.891 Other specified pregnancy related conditions, first trimester (principal); R10.2 Pelvic and perineal pain; O99.331 Smoking (tobacco) complicating pregnancy, first trimester; F17.200 Nicotine dependence, unspecified, uncomplicated; Z3A.01 Less than 8 weeks gestation of pregnancy
CPT/HCPCS: 36415; 76801; 80053; 81001; 81025; 84702; 85025; 86850; 86900; 86901; 99284

== ENCOUNTER → 2024-10-01 | Outpatient (CLI) | payer OTHER | END | disposition home or self-care (01) | LOC: LABWHC1 07:10 | PROVIDERS: ATTEND Emergency Medicine | DX: O99.891 Other specified diseases and conditions complicating pregnancy (principal); R10.9 Unspecified abdominal pain; Z3A.00 Weeks of gestation of pregnancy not specified | CPT/HCPCS: 36415; 84702 ==